=== PATIENT | female | born 1940 | race Caucasian/White ===

== ENCOUNTER → 2017-06-17 | Outpatient (CLI) | payer MEDICARE ==
--- NOTE | 2017-06-21 08:12 | RADIOLOGY REPORT PS360 ---
DIG MAMM-SCREEN PATTI W/CAD ORDERING PHYSICIAN : ISSAC RABAGO PATIENT AGE: 77 years GENDER: Female COMPARISON: October 2016 right mammogram. March bilateral mammogram HISTORY:No hormones. No new complaints. Noncontributory family history. Patient has was [place] she still has a but it not as dark. TECHNIQUE: Std CC & MLO images were obtained. R2 CAD reviewed. FINDINGS: Minimal residual fibroglandular elements both breast When slight differences in projection are considered I believeFeatures are stable bilaterally with no significant new findings. RIGHT BREAST: No interval change. No new areas of concern. The retroareolar glandular pattern appear stable multiple studies LEFT BREAST:slight focal density superior left breast MLO view I believe is stable when compared back to 2012/ 2011 exams.. This area. Dissipates and appears stable on the cc view.. IMPRESSION: Stable bilateral mammogram with no significant new findings by mammography. Mild/Moderate breast density for age However if bloody discharge does indeed persist a would suggest & encourage follow-up ultrasound right breast to again survey for any any evident intraductal findings: and follow previous nonspecific debris-filled cyst/versus nodule noted on prior October 2016 ultrasound report. (Touch prep of any discharge for cytology may be of benefit as well) BI-RADS CATEGORY: 2. RECOMMENDED FOLLOWUP: 12M 12 MONTH FOLLOW-UP *However if the patient does indeed have persistent persistent bloody discharge I would encourage a follow-up ultrasound right breast..(Touch prep of any discharge for cytology may be of benefit as well) (A letter has been sent to the patient regarding results of the study.)
== END ==
LOC: RAD 16:46
DX: Z12.31 Encounter for screening mammogram for malignant neoplasm of breast (principal)
CPT/HCPCS: G0202